=== PATIENT | male | born 1955 | race Caucasian/White ===

== ENCOUNTER 2017-05-10 12:58 | Emergency (ER) | payer MEDICAID ==
[2017-05-10] MEDS ORDERED: IPRATROPIUM/ALBUTEROL 3 ML DEYVIAL ONE (13:47)
[2017-05-10] MEDS ORDERED: IPRATROPIUM/ALBUTEROL 3 ML DEYVIAL IH ONE (13:48)
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
[2017-05-10 15:25] VITALS: BP 132/89; PULSE 89; RESP 17; TEMP 98.9; O2SAT 91
== END 2017-05-10 15:24 | disposition home or self-care (01) ==
DX: J44.9 Chronic obstructive pulmonary disease, unspecified (principal); M54.2 Cervicalgia; G25.81 Restless legs syndrome; G89.29 Other chronic pain